=== PATIENT | female | born 2000 | race Caucasian/White ===

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

== ENCOUNTER 2024-02-08 20:58 | Emergency (ER) | payer OTHER ==
[~2024-02-08] VITALS: Ht 160 cm; Wt 40.8 kg
[2024-02-08 21:44] VITALS: BP 120/99
== END 2024-02-08 22:30 | disposition home or self-care (01) ==
LOC: ER 20:58
DX: S92.515A Nondisplaced fracture of proximal phalanx of left lesser toe(s), initial encounter for closed fracture (principal); S60.032A Contusion of left middle finger without damage to nail, initial encounter; W22.8XXA Striking against or struck by other objects, initial encounter; Z91.02 Food additives allergy status
CPT/HCPCS: 73630; 99283-25